=== PATIENT | male | born 2005 | race Caucasian/White ===

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

== ENCOUNTER 2023-02-14 20:42 | Emergency (ER) | payer MEDICAID ==
[~2023-02-14] VITALS: Ht 172.7 cm; Wt 54.5 kg
[~2023-02-14 20:42] MED LIST changes: -MIRT-114 PO; -NO HOME MEDS; +OLAN10TA73 PO; +QUET-1 PO; -SERT100T PO; -SERT25TA PO; -SULF1TAB49 PO
[2023-02-14] MEDS ORDERED: normal saline 1000ml 1,000 ML IV ONE (22:15)
[2023-02-14] MEDS ORDERED: vancomycin/NS 1 GM ADD-VANTAGE 250 ML IV ONE (22:15)
[2023-02-14] MEDS ORDERED: piperacillin/tazo 3.375gm/50ml 50 ML IV ONE (22:15)
[2023-02-14 22:35] VITALS: BP 113/62
--- NOTE | 2023-02-14 22:52 | NUR ---
2250 Pt refusing to continue IVF and antibiotics ordered, aware and at BS, IV access removed by Afsaneh MARTIN, cath intact, dressing to site, AMA signed, pt left amb with steady gait with all belongings, stating he needs to take care of something and will return in the AM
[2023-02-14] MEDS ORDERED: SULF1TAB49 PO (22:53)
[2023-02-14] MEDS ORDERED: CefTRIAXone 500MG IM Kit w/LIDOcaine IM ONE (22:55)
[2023-02-14 23:02] LABS: BASOPHILS % (AUTO) 0.4 % (0-1); EOSINOPHILS # (AUTO) 0.1 X10'3 (0-0.9); EOSINOPHILS % (AUTO) 0.7 % (0-6); HEMATOCRIT 34.7 % (42.0-52.0); HEMOGLOBIN 11.6 g/dl (14.0-17.9); LYMPHOCYTES % (AUTO) 17.2 % (21-51); MEAN CORPUSCULAR HEMOGLOBIN 28.9 PG (27.0-31.0); MEAN CORPUSCULAR HGB CONC 33.4 g/dL (33.0-36.5); MEAN CORPUSCULAR VOLUME 86.5 FL (78-98); MEAN PLATELET VOLUME 8.2 FL (7.4-10.4); MONOCYTES # (AUTO) 1.4 X10'3 (0-0.9); MONOCYTES % (AUTO) 12.3 % (2-12); NEUTROPHILS # (AUTO) 8.1 X10'3 (1.8-7.7); NEUTROPHILS % (AUTO) 69.4 % (42-75); PLATELET COUNT 396 X10'3 (140-440); RED CELL DISTRIBUTION WIDTH 14.5 % (11.5-14.5); WHITE BLOOD COUNT 11.7 X10'3 (4.5-11.0)
[2023-02-14 23:19] LABS: ALANINE AMINOTRANSFERASE 18 U/L (12-78); ALBUMIN 2.7 G/DL (3.4-5.0); ALBUMIN/GLOBULIN RATIO 0.5 (1.1-1.5); ALKALINE PHOSPHATASE 79 IU/L (20-180); ANION GAP 9 (8-16); ASPARTATE AMINO TRANSFERASE 24 U/L (10-37); BILIRUBIN,TOTAL 0.3 MG/DL (0.1-1.0); BLOOD UREA NITROGEN 12 MG/DL (7-18); CALCIUM 8.9 MG/DL (8.5-10.1); CHLORIDE 103 MMOL/L (99-107); GLUCOSE 101 MG/DL (70-104); MAGNESIUM 2.1 MG/DL (1.5-2.4); SODIUM 138 MMOL/L (135-145); TOTAL CARBON DIOXIDE 25.9 MMOL/L (24-32); TOTAL PROTEIN 7.9 G/DL (6.4-8.2); eGFR > 90 ML/MIN
== END 2023-02-14 23:06 | disposition left against medical advice (07) ==
LOC: ER 20:42
DX: L03.113 Cellulitis of right upper limb (principal); F15.20 Other stimulant dependence, uncomplicated; F12.90 Cannabis use, unspecified, uncomplicated; Z59.00 Homelessness unspecified; Z56.0 Unemployment, unspecified
CPT/HCPCS: 36415; 73130; 80053; 83605; 83735; 84145; 85025; 85651; 86140; 87040; 99284; J7030

== ENCOUNTER 2023-05-19 19:13 | Emergency (ER) | payer MEDICAID ==
[~2023-05-19] VITALS: Ht 175.3 cm; Wt 49.6 kg
[2023-05-19 19:23] VITALS: BP 139/90; PULSE 102; RESP 18; TEMP 99.1; O2SAT 100
== END 2023-05-19 23:22 | disposition left against medical advice (07) ==
LOC: ER 19:13
DX: J34.89 Other specified disorders of nose and nasal sinuses (principal); Z53.21 Procedure and treatment not carried out due to patient leaving prior to being seen by health care provider
CPT/HCPCS: 99281

== ENCOUNTER 2024-10-02 16:11 | Emergency (ER) | payer MEDICAID ==
[~2024-10-02] VITALS: Ht 177.8 cm; Wt 63.6 kg
[2024-10-02 16:49] LABS: BASOPHILS % (AUTO) 0.3 % (0-1); EOSINOPHILS # (AUTO) 0.1 X10'3 (0-0.9); EOSINOPHILS % (AUTO) 0.5 % (0-6); HEMATOCRIT 38.9 % (42.0-52.0); HEMOGLOBIN 12.6 g/dl (14.0-17.9); MEAN CORPUSCULAR HEMOGLOBIN 28.5 PG (27.0-31.0); MEAN CORPUSCULAR HGB CONC 32.3 g/dL (33.0-36.5); MEAN PLATELET VOLUME 8.5 FL (7.4-10.4); MONOCYTES # (AUTO) 1.4 X10'3 (0-0.9); MONOCYTES % (AUTO) 9.5 % (2-12); NEUTROPHILS # (AUTO) 11.1 X10'3 (1.8-7.7); NEUTROPHILS % (AUTO) 75.7 % (42-75); PLATELET COUNT 435 X10'3 (140-440); RED BLOOD COUNT 4.42 X10'6 (4.70-6.10); RED CELL DISTRIBUTION WIDTH 14.3 % (11.5-14.5); WHITE BLOOD COUNT 14.6 X10'3 (4.5-11.0)
[2024-10-02 17:05] LABS: ABG BASE EXCESS -2.4 mmol/L (-2.0-3.0); ABG HCO3 24.5 mmol/L (21.0-28.0); ABG OXYGEN SATURATION 94.3 % (94.0-98.0); ABG PCO2 (T) 50.2 mmHg (35.0-48.0); ABG PH (T) 7.304 (7.350-7.450); ABG PO2 (T) 74.4 mmHg (83.0-108.0); ALLEN'S TEST POSITIVE; FCOHb 0.9 % (0.5-1.5); FHHb 5.6 % (0.0-5.0); FLOW 0 L/min; FO2Hb 93.5 % (94.0-98.0); MODE RA; PATIENT TEMPERATURE 36.7; TOTAL HEMOGLOBIN 13.3 G/dl (13.5-17.5)
[2024-10-02 17:08] LABS: ANION GAP 6 (8-16); BLOOD UREA NITROGEN 19 MG/DL (7-18); BUN/CREATININE RATIO 22.1 (10.0-20.0); CALCIUM 8.4 MG/DL (8.5-10.1); CHLORIDE 104 MMOL/L (99-107); CREATININE 0.86 MG/DL (0.60-1.10); GLUCOSE 118 MG/DL (70-104); POTASSIUM 4.1 MMOL/L (3.5-5.1); SALICYLATE 0.9 MG/DL (4.0-20.0); SODIUM 140 MMOL/L (135-145); TOTAL CARBON DIOXIDE 30.1 MMOL/L (24-32); eCRCL 122 ML/MIN; eGFR > 90 ML/MIN
[2024-10-02 17:36] LABS: ACETAMINOPHEN < 2.0 UG/ML (10-30); ETHANOL < 10 MG/DL (<10)
[2024-10-02] MEDS: normal saline 1000ML IV soln IVB ONE (17:58)
[2024-10-02 18:10] VITALS: TEMP 98.4
[2024-10-02 23:18] VITALS: BP 121/78; PULSE 78; RESP 15; O2SAT 97
== END 2024-10-02 23:19 | disposition home or self-care (01) ==
LOC: ER 16:11
DX: T40.411A Poisoning by fentanyl or fentanyl analogs, accidental (unintentional), initial encounter (principal); R07.89 Other chest pain; F12.90 Cannabis use, unspecified, uncomplicated; F15.90 Other stimulant use, unspecified, uncomplicated; F32.A Depression, unspecified; Z79.899 Other long term (current) drug therapy; Y92.89 Other specified places as the place of occurrence of the external cause
CPT/HCPCS: 36415; 36600; 80048; 80320; 80329; 82803; 85018; 85025; 93005; 99285; J7030

== ENCOUNTER 2025-03-08 19:04 | Emergency (ER) | payer MEDICAID ==
[~2025-03-08] VITALS: Ht 177.8 cm; Wt 61.8 kg
[2025-03-08 20:39] LABS: BILIRUBIN,URINE NEGATIVE (Neg); CLARITY,URINE CLEAR (Clear); COLOR,URINE YELLOW (Yellow); GLUCOSE, URINE NEGATIVE (Neg); KETONES,URINE NEGATIVE (Neg); LEUKOCYTE ESTERASE ,URINE NEGATIVE (Neg); NITRITES, URINE NEGATIVE (Neg); OCCULT BLOOD,URINE NEGATIVE (Neg); PROTEIN,URINE 30 mg/dl (Neg)
[2025-03-08 20:41] LABS: UA COLLECTION TYPE CLN CATCH MIDSTREAM
[2025-03-08 20:47] LABS: BACTERIA,URINE FEW /HPF (Neg); RBC,URINE NONE SEEN /HPF (0-2); SQUAMOUS EPITHELIAL CELL,UR NONE SEEN /LPF (FEW); WBC,URINE 0-4 /HPF (0-4)
[2025-03-08 20:48] LABS: AMORPHOUS URATES 1+
[2025-03-08] MEDS: normal saline 1000ML IV soln IVB ONE ×2 (21:12→22:19)
[2025-03-08] MEDS ORDERED: iohexol 300mg/ml 100ml inj. ONE (21:14)
[2025-03-08 21:26] LABS: BASOPHILS # (AUTO) 0.1 X10'3 (0-0.2); BASOPHILS % (AUTO) 0.4 % (0-1); EOSINOPHILS % (AUTO) 0.1 % (0-6); HEMATOCRIT 38.1 % (42.0-52.0); LYMPHOCYTES % (AUTO) 8.9 % (21-51); MEAN CORPUSCULAR HGB CONC 34.1 g/dL (33.0-36.5); MEAN CORPUSCULAR VOLUME 85.2 FL (78-98); MEAN PLATELET VOLUME 7.9 FL (7.4-10.4); MONOCYTES # (AUTO) 1.9 X10'3 (0-0.9); MONOCYTES % (AUTO) 8.6 % (2-12); PLATELET COUNT 397 X10'3 (140-440); RED BLOOD COUNT 4.47 X10'6 (4.70-6.10); RED CELL DISTRIBUTION WIDTH 14.9 % (11.5-14.5); WHITE BLOOD COUNT 21.9 X10'3 (4.5-11.0)
[2025-03-08] MEDS: ceFAZolin/D5W- 1GM premix 50 ML IV ONE (21:35)
[2025-03-08 21:49] LABS: ALANINE AMINOTRANSFERASE 118 U/L (12-78); ALBUMIN 3.2 G/DL (3.4-5.0); ALBUMIN/GLOBULIN RATIO 0.7 (1.1-1.5); ALKALINE PHOSPHATASE 99 IU/L (46-116); ANION GAP 6 (8-16); ASPARTATE AMINO TRANSFERASE 53 U/L (10-37); BILIRUBIN,TOTAL 0.7 MG/DL (0.1-1.0); BLOOD UREA NITROGEN 16 MG/DL (7-18); BUN/CREATININE RATIO 21.6 (10.0-20.0); CALCIUM 9.5 MG/DL (8.5-10.1); CHLORIDE 105 MMOL/L (99-107); CREATININE 0.74 MG/DL (0.60-1.10); GLUCOSE 102 MG/DL (70-104); POTASSIUM 5.2 MMOL/L (3.5-5.1); SODIUM 139 MMOL/L (135-145); TOTAL CARBON DIOXIDE 28.3 MMOL/L (24-32); TOTAL PROTEIN 7.9 G/DL (6.4-8.2); eCRCL 138 ML/MIN; eGFR > 90 ML/MIN
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
[2025-03-08] MEDS: ondansetron/PF 4mg/2ml inj IV ONE (22:16)
[2025-03-08] MEDS: morphine 4 MG/ML inj SYRINge IV ONE (22:18)
--- NOTE | 2025-03-08 22:36 | RADIOLOGY REPORT ---
Clinical History broken jaw right with abscess Comparison None Technique: All CT scans at this medical facility are performed using dose modulation techniques as appropriate t o a performed exam including the following: Automated exposure control was utilized; adjustment of th e mA and/or kV according to patient size; and use of iterative reconstruction technique. All CT studies are reported to the Dose Index Registry of the [employer]. Contrast: OMNIPAQUE 300, 100ML Radiation Dose: CTDI (mGy): 54.47; DLP (mGy-cm): 1205.10 ALISSA NIEVES, [id number] FINDINGS: Nondisplaced transverse fracture of the right lower mandibular arch at the level of the right first a nd second bicuspid (premolar teeth). 6 x 4 cm loculated abscess is seen adjacent to the right lower mandible with surrounding heterogeneou s soft tissue enhancement and infiltration of fat. Bilateral reactive cervical lymphadenopathy, the largest measures 1.4 x 1.2 cm Unremarkable bilateral temporomandibular joint. No acute orbital abnormality. Evaluation of the bony orbits demonstrates normal bone density without evidence of bony fracture. The globes bilaterally are symmetrical in their appearance and normal in attenuation. The optic nerve s are also normal in caliber. There is no evidence of preseptal or postseptal mass. The imaged part of the paranasal sinuses is unremarkable.The imaged part of mastoid air cells is unre markable. The visualized sella and suprasellar structures are unremarkable.The imaged part of the skull base is unremarkable. The imaged part of cervical spines is unremarkable. IMPRESSION: Nondisplaced transverse fracture of the right lower mandibular arch at the level of the right first a nd second bicuspid (premolar teeth). 6 x 4 cm superficial loculated abscess adjacent to the fractured mandible. This report was electronically signed by Paulino Crowley MD on 03/08/2025 10:32:35 PM.
[2025-03-08 23:42] VITALS: BP 132/82; PULSE 88; RESP 18; TEMP 99.2; O2SAT 98
== END 2025-03-09 00:05 ==
LOC: ER 19:05
DX: S02.69XA Fracture of mandible of other specified site, initial encounter for closed fracture (principal); M27.2 Inflammatory conditions of jaws; F32.A Depression, unspecified; F12.90 Cannabis use, unspecified, uncomplicated; F15.90 Other stimulant use, unspecified, uncomplicated; Z59.00 Homelessness unspecified; Z56.0 Unemployment, unspecified; Z79.899 Other long term (current) drug therapy; Y04.8XXA Assault by other bodily force, initial encounter; Y93.89 Activity, other specified; Y92.89 Other specified places as the place of occurrence of the external cause; Y99.8 Other external cause status
CPT/HCPCS: 36415; 70487; 80053; 81001; 83605; 83735; 84145; 85025; 87040; 96361; 96365; 96375; 99291; J0690; J2270; J2405; J7030; Q9967